=== PATIENT | male | born 1990 | race Caucasian/White ===

== ENCOUNTER 2017-09-29 09:41 | Emergency (ER) | payer SELFPAY ==
[~2017-09-29] VITALS: Ht 188 cm; Wt 109.8 kg
[2017-09-29 09:43] VITALS: BP 135/71
== END 2017-09-29 10:46 | disposition home or self-care (01) ==
LOC: ED 10:19
DX: H10.31 Unspecified acute conjunctivitis, right eye (principal); H00.021 Hordeolum internum right upper eyelid; Z87.891 Personal history of nicotine dependence
CPT/HCPCS: 99283

== ENCOUNTER 2020-10-02 18:06 | Observation (INO) | payer BC, OTHER ==
[~2020-10-02] VITALS: Ht 188 cm; Wt 102.1 kg
[2020-10-02 18:46] LABS: BASOPHILS % (AUTO) 0 % (0-1); EOSINOPHILS % (AUTO) 0 % (1-7); LYMPHOCYTES % (AUTO) 6 % (22-44); MEAN CORPUSCULAR HGB CONC 34.8 g/dL (33.2-36.2); MEAN PLATELET VOLUME 8.9 fL (7.4-10.4); MONOCYTES % (AUTO) 5 % (2-9); NEUTROPHILS % (AUTO) 89 % (42-75); PLATELET COUNT 279 x10^3/uL (130-400); RED BLOOD COUNT 5.18 x10^6/uL (4.38-5.82); RED CELL DISTRIBUTION WIDTH 13.8 % (9.4-14.8)
[2020-10-02 18:55] LABS: ANION GAP 4 mmol/L (5-15); CALCIUM 9.5 mg/dL (8.5-10.1); CHLORIDE 104 mmol/L (98-107)
--- NOTE | 2020-10-02 19:06 | NUR ---
PT W LLQ SINCE YEST, LAST PO INTAKE 8 PM YEST. N/V/D/FEVERS/ABD PAIN. LABS PENDING, PT GIVING UA. REPORT TO FADY MOLINA.
[2020-10-02 19:28] LABS: ALBUMIN 4.3 g/dL (3.4-5.0)
[2020-10-02] MEDS ORDERED: ONDANSETRON 2MG/ML, 2ML IVPush ONE (19:30)
[2020-10-02 19:32] LABS: BILIRUBIN, DIRECT 0.3 mg/dL (0.1-0.2); BILIRUBIN,INDIRECT 0.8 mg/dL (0.0-2.0); BILIRUBIN,TOTAL 1.1 mg/dL (0.2-1.0); TOTAL PROTEIN 8.1 g/dL (6.4-8.2)
[2020-10-02 19:34] LABS: MICROSCOPIC INDICATED
[2020-10-02] MEDS ORDERED: ONDANSETRON 2MG/ML, 2ML ONE ×2 (19:37→20:57)
[2020-10-02] MEDS ORDERED: MORPHINE SULFATE 4 MG/ML, 1ML ONE ×2 (19:37→20:57)
[2020-10-02] MEDS: MORPHINE SULFATE 4 MG/ML, 1ML IVPush PRN ×2 (19:40→20:59)
--- NOTE | 2020-10-02 19:42 | NUR ---
PT MEDICATED PER MAR FOR PAIN/ NAUSEA
--- NOTE | 2020-10-02 20:03 | NUR ---
PT STS FEELING BETTER AFTER MEDS AT THIS TIME. RESTING ON GURFIDE AT BEDSIDE
--- NOTE | 2020-10-02 20:22 | NUR ---
ALL RESULTS BACK CHART UP FOR RCK
[2020-10-02] MEDS ORDERED: CEFOTETAN PMX 1GM/50ML 50 ML IVPB ONE (20:30)
[2020-10-02] MEDS ORDERED: ONDANSETRON 2MG/ML, 2ML IVPush PRN ×2 (21:00→23:00)
[2020-10-02] MEDS ORDERED: MORPHINE SULFATE 4 MG/ML, 1ML IVPush PRN ×2 (21:00→23:00)
[2020-10-02] MEDS ORDERED: SODIUM CHLORIDE 0.9% 1,000 ML IV ONE (21:00)
--- NOTE | 2020-10-02 21:03 | NUR ---
PT MEDICATED PER MAR FOR PAIN/ NAUSEA AT THIS TIME, AT BEDSIDE
--- NOTE | 2020-10-02 21:53 | NUR ---
REPORT TO ORQUIDEA MOLINA PT READY FOR TRANSFER TO FLOOR
[2020-10-02 22:11] VITALS: BP 136/74
[2020-10-02] MEDS: LACTATED RINGERS 1,000 ML IV SCH (23:27)
[2020-10-02] MEDS ORDERED: ACETAMINOPHEN 325 MG TABLET PO PRN (23:30)
[2020-10-02] MEDS ORDERED: EPINEPHRINE 1 MG/ML, 1ML ONE (23:55)
[2020-10-02] MEDS ORDERED: BUPIVACAINE/PF 0.5% ONE (23:55)
[2020-10-03 02:33] VITALS: BP 105/74
[2020-10-03] MEDS ORDERED: MIDAZOLAM 1 MG/ML, 2ML ONE (06:22)
[2020-10-03] MEDS ORDERED: FENTANYL PF 250 MCG/5ML ONE (06:22)
[2020-10-03] MEDS ORDERED: ROCURONIUM 10MG/ML,5ML ONE (06:24)
[2020-10-03] MEDS ORDERED: DEXAMETHASONE 4 MG/ML, 5ML ONE (06:36)
[2020-10-03] MEDS ORDERED: CEFOTETAN 1 GM ONE (06:38)
[2020-10-03] MEDS ORDERED: PROPOFOL 10 MG/ML, 20ML ONE (06:38)
[2020-10-03] MEDS ORDERED: KETOROLAC 30 MG/1 ML ONE (06:48)
[2020-10-03] MEDS ORDERED: ONDANSETRON 2MG/ML, 2ML ONE (06:49)
[2020-10-03] MEDS ORDERED: LABETALOL 5MG/ML, 20ML IV PRN (07:00)
[2020-10-03] MEDS ORDERED: ACETAMINOPHEN 325 MG TABLET PO PRN (07:00)
[2020-10-03] MEDS ORDERED: FENTANYL PF 100 MCG/2ML IV PRN (07:00)
[2020-10-03] MEDS ORDERED: PROMETHAZINE 25 MG/ML, 1ML IVPush PRN (07:00)
[2020-10-03] MEDS ORDERED: MEPERIDINE/PF 25MG/0.5ML IVPush PRN (07:00)
[2020-10-03] MEDS ORDERED: OXYcodone 5 MG/5 ML ORAL.SOL UDC PO PRN (07:00)
[2020-10-03] MEDS ORDERED: hydrALAzine 20 MG/ML, 1ML IV PRN (07:00)
[2020-10-03] MEDS ORDERED: ONDANSETRON 2MG/ML, 2ML IVPush PRN (07:00)
[2020-10-03] MEDS ORDERED: HYDROmorphone 1 MG/ML, 1ML INJ IVPush PRN (07:00)
[2020-10-03] MEDS ORDERED: PROMETHAZINE 25 MG/ML, 1ML ONE (07:24)
[2020-10-03] MEDS: LACTATED RINGERS 1,000 ML IV SCH (07:30)
[2020-10-03] MEDS ORDERED: MEPERIDINE/PF 25MG/ML,1ML ONE (07:39)
[2020-10-03] MEDS ORDERED: ACETAMINOPHEN 650 MG/20.3 ML UDC ONE (08:01)
[2020-10-03] MEDS ORDERED: OXYcodone 5 MG/5 ML ORAL.SOL UDC ONE (08:01)
[2020-10-03 08:45] VITALS: BP 136/77
[2020-10-03] MEDS ORDERED: TRAM50TA2 PO (09:54)
[2020-10-03] MEDS ORDERED: PROM12.57 PO (09:55)
== END 2020-10-03 11:55 | disposition home or self-care (01) ==
LOC: ED 20:18 → INTOOBSV 21:02 → EDIP 21:02 → 4NE 22:13 → DCLOUNGE 10-03 11:15
PROVIDERS: ADMIT Surgery; ATTEND Surgery
DX: K35.80 Unspecified acute appendicitis (principal); Z20.822 Contact with and (suspected) exposure to COVID-19; D72.829 Elevated white blood cell count, unspecified; F17.210 Nicotine dependence, cigarettes, uncomplicated; Z79.899 Other long term (current) drug therapy
CPT/HCPCS: 36415; 44970; 74177; 80048; 80076; 81001; 83690; 85025; 87635; 88304; 96361; 96365; 96375; 96376; 99285; G0378; J0171; J1100; J1885; J2175; J2250; J2270; J2405; J2550; J2704; J3010; J7120; S0020; 96374